=== PATIENT | female | born 1935 | race Caucasian/White ===

== ENCOUNTER 2019-04-06 13:34 | Observation (INO) | payer MEDICARE, BC ==
[2019-04-06 14:09] LABS: INR-International Normal Ratio 1.5; PTT 37.3 SEC (22.9-36.1); Prothrombin Time 17.6 SEC (12.0-14.7)
[2019-04-06] MEDS ORDERED: HYDROcodone/Acetaminophen 5/325 mg Tablet ONE (14:20)
--- NOTE | 2019-04-06 14:42 | CT ---
CT BRAIN NONCONTRAST: DATE: 04/06/2019 HISTORY: 84-year-old female status post acute head trauma from fall. Dr. Cobos reported the findings by telephone to Dr. Matta for this level 2 trauma case, at [facility] 1:55 PM on 04/06/2019 FINDINGS: There is no evidence of acute intra-axial or extra-axial hemorrhage. There is no midline shift or any other mass effect. There is no extra-axial fluid collection. There is no evidence of obstructive hydrocephalus. Calvarium is intact. There is diffuse brain parenchymal volume loss. There are low att enuation areas in the white matter. These are nonspecific, but in a patient of this age, they are probably chronic ischemic white matter changes due to microvascular atherosclerosis. There is a large left frontal scalp hematoma which across slightly to the right of midline. IMPRESSION: 1) No acute intracranial findings. 2) involutional changes and chronic ischemic white matter changes. 3) large, acute, traumatic soft tissue hematoma in the left frontal scalp.
--- NOTE | 2019-04-06 14:42 | CT ---
CT CERVICAL SPINE NONCONTRAST: DATE: 04/06/2019 HISTORY: cervical trauma, 84-year-old female status post fall. Dr. Cobos gave this report verbally, including the left pleural effusion, by telephone to Dr. Shakeel barbosa at 2:04 PM on 04/06/2019 for this level 2 trauma case. FINDINGS: There are no jumped or perched facets. There is no evidence of acute fracture. The vertebral body hei ghts are maintained. There is no prevertebral soft tissue swelling. There is a left pleural effusion that reaches the left apical pleural surface. IMPRESSION: 1. No evidence of acute fracture or acute traumatic subluxation. 2. Left pleural effusion.
--- NOTE | 2019-04-06 14:56 | RAD ---
RADIOGRAPH CHEST 1 VIEW: DATE: 04/06/2019 TIME: 2:24 PM HISTORY: 84-year-old female status post acute chest trauma from fall COMPARISON: none FINDINGS: No cardiomegaly. Retrocardiac portion of left lower lobe has increased attenuation. Rest of the visua lized lung singleton are grossly clear. Silhouetting of portions of left hemidiaphragm. Sternotomy wires. ORIF hardware fixating old left humeral neck fracture. No pneumothorax. Ectasia and tortuosity of thoracic aorta. IMPRESSION: 1. Airspace opacity at medial base of left lower lobe: Nonspecific. 2. Questionable left pleural effusion.
--- NOTE | 2019-04-06 15:23 | RAD ---
LEFT ELBOW 2 VIEWS: Date: 04/06/19 HISTORY: Injury from trauma. FINDINGS: Minimal degenerative changes and bone demineralization. No fracture, dislocation, or other acute proc ess. IMPRESSION: Bone demineralization and degenerative change without fracture or other acute process. POS: RRE
--- NOTE | 2019-04-06 15:24 | RAD ---
PELVIS 1 VIEW: Date: 04/06/19 HISTORY: Trauma. COMPARISON: None. FINDINGS: The obturator rings are intact. Moderate degenerative disease of SI joints. There is slight cortical contour irregularity along the margin of the right femoral head/neck junctio n. IMPRESSION: Focal cortical irregularity right lateral femoral head/neck junction. Dedicated right hip radiograph is recommended if clinically warranted. This may reflect impacted subcapital fracture versus ring ost eophyte. If the patient is unable to bear weight, this is more likely a fracture. POS: CET
[2019-04-06 16:43] LABS: ALT (SGPT) 27 U/L (8-55); AST (SGOT) 80 U/L (5-34); Albumin 2.4 g/dL (3.4-4.8); Alkaline Phosphatase 127 U/L (40-150); Anion Gap 12 mmol/L (10-20); BUN (Urea Nitrogen) 9 mg/dL (9.8-20.1); Bilirubin, Total 0.9 mg/dL (0.2-1.2); Calc. Creatinine Clearance 0 mL/min (70-130); Calcium 7.9 mg/dL (7.8-10.44); Carbon Dioxide 25 mmol/L (23-31); Chloride 100 mmol/L (98-107); Estimated GFR-MDRD 75; Globulin 3.9 g/dL (2.4-3.5); Glucose 104 mg/dL (83-110); Magnesium 1.3 mg/dL (1.6-2.6); Protein, Total 6.3 g/dL (6.0-8.3); Sodium 134 mmol/L (136-145)
[2019-04-06 16:44] LABS: Potassium 2.7 mmol/L (3.5-5.1)
[2019-04-06 16:49] LABS: Hemoglobin 11.2 g/dL (12.0-16.0); Mean Corpuscular HGB CONC 32.5 g/dL (32.0-36.0); Mean Corpuscular Hemoglobin 28.3 pg (27.0-31.0); Mean Corpuscular Volume 86.9 fL (78.0-98.0); RBC Distribution Width 13.3 % (11.5-14.5); Red Blood Cell (RBC) Count 3.97 mill/uL (4.20-5.40)
[2019-04-06 17:08] LABS: #Lymphocytes 2.2 thou/uL (1.20-3.40); #Monocytes 0.4 thou/uL (0.11-0.59); #Neutrophils 3.3 thou/uL (1.40-6.50); %Basophils 0.3 % (0.0-1.0); %Eosinophils 0.3 % (0.0-10.0); %Lymphocytes 37.3 % (21.0-51.0); %Monocytes 6.7 % (0.0-10.0); %Neutrophils 55.4 % (42.0-75.0); Mean Platelet Volume 8.1 fL (7.4-10.4); Platelet Count 115 thou/uL (130-400); Platelet Morphology Comment Appears Decreased
[2019-04-06] MEDS ORDERED: Magnesium 2 GM/50 ML BAG (IN WATER) ONE (18:35)
[2019-04-06] MEDS ORDERED: Potassium Chloride 20 MEQ/100 ML PREMIX BAG ONE (18:36)
[2019-04-06] MEDS ORDERED: cefTRIAXone\\ROCEPHIN 2 GM VIAL ONE (18:36)
[2019-04-06] MEDS ORDERED: Potassium Chloride 20 MEQ TAB ONE (18:36)
[2019-04-06 19:35] LABS: Lactic Acid 0.9 mmol/L (0.5-2.2)
[2019-04-06 21:31] VITALS: BMI 20.8
[2019-04-07] MEDS ORDERED: Acetaminophen 650 MG Suppository PR PRN (00:03)
[2019-04-07] MEDS ORDERED: Ondansetron ODT 4 MG TAB PO PRN (00:03)
[2019-04-07] MEDS ORDERED: Ondansetron PF 4 MG/2 ML Vial IVP PRN (00:03)
[2019-04-07] MEDS: Azithromycin 500 MG in Sodium Chloride 0.9% 250 ML 250 ML IVPB SCH (02:35)
--- NOTE | 2019-04-07 03:30 | HP ---
PRIMARY CARE PHYSICIAN: Dr. Isaías Urbina. CODE STATUS: Full code. TIME OF EVALUATION: 10:45 p.m. CHIEF COMPLAINT: Fall. HISTORY OF PRESENT ILLNESS: This is an 84-year-old female patient with past medical history of cardiac history, coronary artery disease, hypertension, CVA, came to the hospital after having a fall. The patient reported that she just tripped and fell. No clear triggers. No alleviating factors. The patient has significant lacerations and ecchymoses in the face due to the fall. Trauma workup was done that showed basically no acute fractures. The patient has no loss of consciousness. She was walking to the restroom when she fell and hit on a ceramic tiles. The patient was transported to the hospital by [facility]. Also, the patient was on Eliquis. Symptoms started suddenly, triggered by fall. No alleviating factors. REVIEW OF SYSTEMS: CONSTITUTIONAL: No fever, chills. The patient has generalized weakness. RESPIRATORY: No cough, sputum production, or shortness of breath. CARDIOVASCULAR: No chest pain or palpitation. GASTROINTESTINAL: No nausea, vomiting, diarrhea, or abdominal pain. SENIOR HR MANAGER: No dizziness, headache, or feeling lightheaded. GENITOURINARY: No burning on urination. EXTREMITIES: Bilateral leg swelling. SKIN: The patient has multiple ecchymoses in the facial area due to status post fall. All other systems were reviewed and negative except for the findings mentioned above. PAST MEDICAL HISTORY: As mentioned in the HPI. FAMILY HISTORY: Reviewed and noncontributory to the current presentation. PAST SURGICAL HISTORY: The patient has a history of valve replacement. PSYCHIATRIC HISTORY: Includes depression. SOCIAL HISTORY: No alcohol. No drugs. No smoking history. KNOWN ALLERGIES: No known drug allergies. REPORTED MEDICATIONS: 1. Pristiq. 2. Eliquis. 3. Metoprolol. 4. Cholestyramine. PHYSICAL EXAMINATION: VITAL SIGNS: On presentation, blood pressure 132/89 with heart rate 74, respiratory rate was 16, temperature 98.1, pain 8/10, oxygen saturation 95% on room air. GENERAL APPEARANCE: The patient is alert, oriented, in no acute distress. HEENT: The patient has some bilateral periorbital areas due to facial trauma. Normal conjunctivae. Moist oral mucosa. Anicteric. No JVD. RESPIRATORY: Bilateral air entry. No rales or wheezes. Symmetric expansion. CARDIOVASCULAR: Normal rate, regular rhythm. No murmurs. No gallop. No edema. ABDOMEN: Soft. Normal bowel sounds. MUSCULOSKELETAL: Baseline range of motion and strength. SKIN: Warm, intact. No pallor. No rash. No redness. Capillary refill seems to be intact. NEUROLOGIC: No evidence of any new focal weakness. Cranial nerves seems to be intact. PSYCHIATRIC: The patient is in good mood. No anxiety. Optimal judgment. DIAGNOSTIC STUDIES: EKG was reviewed. The patient has normal sinus rhythm with a rate of 71, nonspecific ST and T-wave abnormalities, prolonged QT. Radiology; head CT was negative without contrast, no intracranial finding. Cervical spine CT shows findings of left pleural effusion. Preliminary review of CT scan was done by radiologist. LABORATORY DATA: Labs were reviewed. The patient has white count 6.0, hemoglobin 11.2, MCV 86.9, platelet count 115. Coagulation; INR 1.5, PTT 37.3, PT 17.6. Sodium 134, potassium 2.7, chloride 100, carbon dioxide 25, anion gap 12, BUN 9, creatinine 0.74, GFR 75, glucose 104, lactic acid 0.9, calcium 7.9, magnesium 1.3, total bilirubin 0.9. LFTs were negative. Beta-natriuretic peptide was 216 with albumin 2.4, globulin 3.9. ASSESSMENT AND PLAN: The patient will be placed in the hospital with following medical problems: 1. Status post fall, it was a mechanical fall. The patient has a trauma. As of now, as per radiology report, no significant fractures. 2. Chronic anticoagulation. The patient's anticoagulation has been stopped due to trauma. We will hold for now. No evidence of significant hemorrhage has been seen; however, the patient has left-sided pleural effusion. We will do CT scan to assess for need for therapeutic tap and to see if there is any blood component of fluid. Last hemoglobin was 11. We will repeat hemoglobin in the morning to see if there is any drop. 3. Hyponatremia, sodium 134. The patient has been given some fluids. We will monitor sodium. This is mild, no need for any acute intervention at this point. 4. Hypokalemia. The patient has received potassium replacement. Continue to monitor and treat accordingly. 5. Hypomagnesemia is acute at 1.3. Magnesium is being replaced. We will monitor and treat accordingly. 6. Left-sided pleural effusion, unclear etiology. The patient trauma. We will do CT scan to further address this problem. 7. Deep venous thrombosis prophylaxis, apply SCDs. 8. Possible pneumonia. The patient has been started on antibiotics. We will continue for now. We will follow cultures. We will adjust antibiotics as per sensitivity. Job ID: [id number]
[2019-04-07 05:42] LABS: #Lymphocytes 2.4 thou/uL (1.20-3.40); #Monocytes 0.6 thou/uL (0.11-0.59); #Neutrophils 2.2 thou/uL (1.40-6.50); %Basophils 0.3 % (0.0-1.0); %Eosinophils 0.3 % (0.0-10.0); %Lymphocytes 46.1 % (21.0-51.0); %Neutrophils 42.3 % (42.0-75.0); Hemoglobin 10.2 g/dL (12.0-16.0); Mean Corpuscular Hemoglobin 28.9 pg (27.0-31.0); Mean Corpuscular Volume 87.5 fL (78.0-98.0); Mean Platelet Volume 8.8 fL (7.4-10.4); Platelet Count 101 thou/uL (130-400); RBC Distribution Width 13.4 % (11.5-14.5); Red Blood Cell (RBC) Count 3.54 mill/uL (4.20-5.40); White Blood Cell (WBC) Count 5.2 thou/uL (4.8-10.8)
[2019-04-07 05:55] LABS: Anion Gap 7 mmol/L (10-20); BUN (Urea Nitrogen) 9 mg/dL (9.8-20.1); Calc. Creatinine Clearance 59 mL/min (70-130); Calcium 7.1 mg/dL (7.8-10.44); Carbon Dioxide 27 mmol/L (23-31); Chloride 104 mmol/L (98-107); Estimated GFR-MDRD 86; Glucose 92 mg/dL (83-110); Potassium 3.1 mmol/L (3.5-5.1); Sodium 135 mmol/L (136-145)
--- NOTE | 2019-04-07 06:55 | CT ---
CT THORAX WITHOUT IV CONTRAST: INDICATIONS: History of fall with diminished breath sounds on the left. COMPARISON: None. FINDINGS: There is a moderate left and a small right pleural effusion with bibasilar atelectasis. No contusion or pneumothorax is evident. There is post surgical change of a midline sternotomy. There is mild a neurysmal dilatation of the ascending aorta to 4.6 cm. There is aneurysmal dilatation of the aortic arch at 3.7 cm. The descending thoracic aorta measures 2.6 cm. There is a hypodensity involving the right hepatic lobe, suspicious for a cyst, measuring 1.8 cm. There is diffuse fatty infiltration of the liver. There are healed rib deformities involving the posterior 12th, 11th, and 10th ribs. No acute osseous abnormality is evident. There is multilevel spondylosis of the thoracic spine. IMPRESSION: 1. No definite acute traumatic injury seen involving the chest, within the limitations of this nonco ntrast CT evaluation. 2. Aneurysmal dilatation of the ascending aorta and the aortic arch. 3. Moderate left and small right pleural effusions with bibasilar atelectasis. 4. Hypodensity within the right hepatic lobe, most consistent with a right hepatic lobe cyst. 5. Fatty liver. POS: BH
--- NOTE | 2019-04-07 09:21 | PDOC.HOSPP ---
- Subjective Subjective: alert, appropriate no co - Objective Vital Signs & Weight: Vital Signs (12 hours) Temp Pulse Resp BP Pulse Ox 04/07/19 07:33 97.9 F 81 16 158/91 H 93 L 04/07/19 04:00 97.9 F 81 19 146/87 H 100 04/07/19 00:00 97.7 F 75 18 151/90 H 96 04/06/19 21:25 96.3 F L 72 18 178/102 H 95 Weight Weight 125 lb 6.4 oz I&O: 04/06/19 04/07/19 04/08/19 06:59 06:59 06:59 Intake Total 350 Output Total 200 Balance 150 Result Diagrams: 04/07/19 04:56 04/07/19 04:56 ROS - Review of Systems All systems: All other ROS were reviewed and found negative. - Medication Medications: Active Medications Generic Name Dose Route Start Last Admin Trade Name Freq PRN Reason Stop Dose Admin Azithromycin 500 mg/ Sodium 250 mls @ 250 mls/hr 04/07/19 02:00 04/07/19 02: 35 Chloride IVPB 250 mls Q24HR JUAN LUIS Administration - Exam NAD Eye: PERRL Neck: no JVD Heart: RRR, no murmur Respiratory: CTAB, no wheezes, no rales Gastrointestinal: soft, non-tender, normal bowel sounds Extremities: no edema Neurological: CN's grossly intact, no focal deficits Hosp A/P (1) Syncope Code(s): R55 - SYNCOPE AND COLLAPSE Status: Acute (2) Hematoma Code(s): T14.8XXA - OTHER INJURY OF UNSPECIFIED BODY REGION, INITIAL ENCOUNTER Status: Acute Plan: hematoma scalp, bilat periorbital bruising (3) Anticoagulated Code(s): Z79.01 - HALF-WAY (CURRENT) USE OF ANTICOAGULANTS Status: Acute (4) History of prosthetic heart valve Status: Acute (5) Pleural effusion Code(s): J90 - PLEURAL EFFUSION, NOT ELSEWHERE CLASSIFIED Status: Acute - Plan plan discussed w/ family hold eliquis. echo cardiagram, close observation
[2019-04-07] MEDS: Acetaminophen 325 MG TAB PO PRN ×2 (09:30→15:30)
[2019-04-07] MEDS: Venlafaxine HCl XR 150 MG CAP PO SCH (09:30)
[2019-04-07] MEDS: Metoprolol Tartrate 25 MG TAB PO SCH ×2 (09:30→22:05)
[2019-04-07] MEDS ORDERED: cefTRIAXone\\ROCEPHIN 1 GM in Sodium Chloride 0.9% 100 ML IVPB SCH (18:00)
[2019-04-08] MEDS: Azithromycin 500 MG in Sodium Chloride 0.9% 250 ML 250 ML IVPB SCH (01:33)
[2019-04-08] MEDS: Metoprolol Tartrate 25 MG TAB PO SCH (08:14)
[2019-04-08] MEDS: Venlafaxine HCl XR 150 MG CAP PO SCH (08:14)
[2019-04-08 11:52] VITALS: BP 156/87; TEMP 97.8
--- NOTE | 2019-04-08 12:52 | DIS ---
DATE OF ADMISSION: 04/06/2019 DATE OF DISCHARGE: 04/08/2019 PRIMARY CARE PHYSICIAN: Isaías Urbina MD, in [place]. FINAL DIAGNOSES: Hematoma of scalp, fall, coronary artery disease, asymptomatic , long-term use of anticoagulants, bioprosthetic mitral valve, small left pleural effusion, and hypokalemia. DISCHARGE MEDICATIONS: Her Eliquis has been held. She has been told to take aspirin 325 mg p.o. daily until seen by her PCP, metoprolol 25 mg p.o. b.i.d., Pristiq 100 mg p.o. daily, K-Dur 20 mEq once a day. ALLERGIES: SULFA. DIET: Heart healthy. CODE STATUS: Full. PENDING AT TIME OF DISCHARGE: Nothing. HOSPITAL COURSE: The patient admitted to the [facility] through [facility]. The patient had a fall, hit her forehead, and had a scalp hematoma. She was on Eliquis, which was stopped. She had a questionable density on chest x-ray, which is a small pleural effusion for which she was started on antibiotics. On admission, she had a potassium of 2.7. She was given potassium and it came up to 3.1. She had some other minor abnormalities. Magnesium 1.3, which she was given magnesium for. Liver functions were normal except for an AST of 80. Her CBC showed a hemoglobin of 11.2 and platelet count 115,000. INR was 1.5. She has been observed in the hospital. Vital signs are stable. Cardiorespiratory exam is normal. Neurological exam is normal. She is desirous of going home. She is being discharged for followup with Dr. Isaías Urbina. She has been requested to see him within a week, to stay off the Eliquis and take aspirin 325 mg a day until she sees him. No consultations or procedures. Job ID: [id number] MTDD
== END 2019-04-08 14:11 | disposition home or self-care (01) ==
LOC: ERS 13:34 → 2SW 17:40 → 2NO 21:15
PROVIDERS: ADMIT Internal Medicine; ATTEND Internal Medicine
DX: S00.03XA Contusion of scalp, initial encounter (principal); I25.10 Atherosclerotic heart disease of native coronary artery without angina pectoris; J90 Pleural effusion, not elsewhere classified; E87.6 Hypokalemia; I10 Essential (primary) hypertension; E87.1 Hypo-osmolality and hyponatremia; E83.42 Hypomagnesemia; F32.9 Major depressive disorder, single episode, unspecified; Z95.2 Presence of prosthetic heart valve; Z86.73 Personal history of transient ischemic attack (TIA), and cerebral infarction without residual deficits; Z88.2 Allergy status to sulfonamides; Z79.01 Long term (current) use of anticoagulants; Z79.899 Other long term (current) drug therapy; W01.198A Fall on same level from slipping, tripping and stumbling with subsequent striking against other object, initial encounter
CPT/HCPCS: 70450; 71045; 71250; 72125; 72170; 73070; 80048; 80053; 82550; 83605; 83735; 83880; 84145; 84484; 85025 ×2; 85610; 85730; 93005; 93306; 96365; 96367; 96368; 96375; 96376 ×2; 97139; 99285; G0378 ×4; 36415; G0390; J0456; J0696; J3475; J3480; J3490; J7050

== ENCOUNTER 2020-08-25 13:06 | Inpatient (IN) | payer BC, MEDICARE ==
[~2020-08-25 13:06] MED LIST: Iopamidol-370 76% 500 ML 1 ML ONE
[2020-08-25] MEDS ORDERED: Ketamine 50 MG/ML (10ML VIAL) ONE (13:11)
[2020-08-25 13:27] LABS: Hemoglobin 9.3 g/dL (12.0-16.0); Mean Corpuscular HGB CONC 29.2 g/dL (32.0-36.0); Mean Corpuscular Hemoglobin 27.1 pg (27.0-31.0); Mean Platelet Volume 9.7 fL (7.4-10.4); Platelet Count 103 thou/uL (130-400); RBC Distribution Width 15.1 % (11.5-14.5); Red Blood Cell (RBC) Count 3.42 mill/uL (4.20-5.40); White Blood Cell (WBC) Count 13.5 thou/uL (4.8-10.8)
[2020-08-25] MEDS ORDERED: fentaNYL Citrate/PF 2,000 MCG in Sodium Chloride 0.9% 60 ML IV SCH (13:30)
[2020-08-25 13:32] LABS: INR-International Normal Ratio 3.9; Prothrombin Time 38.8 sec (12.0-14.7)
[2020-08-25 13:33] LABS: PTT 90.8 sec (22.9-36.1)
[2020-08-25 13:34] LABS: Actual Bicarbonate (HCO3a) 2.4 mEq/L (22-28); Analyzer IN Cardio ER; Calcium, Ionized (arterial) 1.16 mmol/L (1.12-1.30); Carboxyhemoglobin (COHb) 0.3 gm% (0.0-3.0); Hemoglobin (Hb) 9.5 g/dL (12.0-16.0); Potassium - ABG Lab 4.81 mmol/L (3.70-5.30)
[2020-08-25] MEDS ORDERED: Sodium Bicarbonate 2.5 MEQ/5 ML VIAL ONE (13:41)
[2020-08-25] MEDS ORDERED: Sodium Bicarb 50 MEQ/50 ML Abboject 8.4% SYRINGE ONE ×3 (13:41→19:03)
--- NOTE | 2020-08-25 13:41 | RAD ---
SINGLE VIEW OF THE CHEST: 08/25/20 COMPARISON: 06/16/20 HISTORY: Shortness of breath. Status post intubation and CPR. FINDINGS: Single view of the chest shows a normal sized cardiomediastinal silhouette. The patient is status pos t sternotomy. There is an endotracheal tube with its tip in good position above the rosa isela and along the inferior border of the clavicles. There is a small left pleural effusion. Haziness is seen in the left thorax which may represent a layering additional component of the pleural effusion. Left apical pleural thickening is seen. No obvious pneumothorax is visualized. Degenerative changes are seen in the spine. Hardware is seen in the left humerus. IMPRESSION: 1. Appropriate position of endotracheal tube. 2. Left pleural effusion. POS: EAA
[2020-08-25 13:48] LABS: Acetaminophen Less than 6.0 mcg/mL (10.0-30.0); Alcohol Less than 10 mg/dL (Less than 10); CK (CPK) 289 U/L (29-168); Salicylate Less than 8.0 mg/dL (15.0-30.0)
[2020-08-25 13:49] LABS: ALT (SGPT) 58 U/L (8-55); AST (SGOT) 137 U/L (5-34); Albumin 2.7 g/dL (3.4-4.8); Alkaline Phosphatase 94 U/L (40-110); Anisocytosis SLIGHT = 6-15 cells (100X) (0-5/hpf); BUN (Urea Nitrogen) 51 mg/dL (9.8-20.1); Band 8 % (5-11); Bilirubin, Total 1.8 mg/dL (0.2-1.2); Calc. Creatinine Clearance 0 mL/min (70-130); Calcium 8.4 mg/dL (7.8-10.44); Chloride 95 mmol/L (98-107); Globulin 4.7 g/dL (2.4-3.5); Glucose 314 mg/dL (83-110); Lymphocytes 30 % (21-51); MDiff Complete? YES; Metamyelocyte 1 % (0-0); Monocytes 14 % (0-10); Myelocyte 1 % (0-0); Neutrophil 45 % (42-75); Nucleated RBC 1 % (0); Ovalocytes SLIGHT = 2-5 cells (100X) (0-1/hpf); Platelet Morphology Comment Appears Decreased; Polychromasia SLIGHT = 2-3 cells (100X) (0-2/hpf); Potassium 5.5 mmol/L (3.5-5.1); Protein, Total 7.4 g/dL (6.0-8.3); Reactive Lymphocytes 1 % (0-10); Sodium 131 mmol/L (136-145)
[2020-08-25] MEDS ORDERED: Sodium Bicarb 50 MEQ/50 ML VIAL ONE (13:49)
[2020-08-25 14:01] LABS: Carbon Dioxide Less than 8 mmol/L (23-31)
[2020-08-25] MEDS ORDERED: Cefepime 2 GM VIAL ONE (14:08)
--- NOTE | 2020-08-25 14:08 | CT ---
CTA Angio Chest W WO Con 08/25/2020 1:53 PM Indication: History of dyspnea Technique: Multiple CTA images were obtained of the thorax with IV contrast. 3-D rendering: MIP jose nstructed images were created and reviewed. Comparison: Prior CT of the thorax without contrast dated April 07, 2019 Findings: Pulmonary arteries: No central or segmental pulmonary embolus is evident. Heart and Aorta: There is stable aneurysmal dilatation of the ascending aorta measuring 5 cm. There are coronary artery and thoracic aortic calcifications. Mediastinum:There is postsurgical change of a prior CABG. The patient is intubated. Lungs:There is subsegmental volume loss within the left lower lobe. There is mild subsegmental volume loss within the right lower lobe. Pleural space: There is a moderate to prominent left and small right pleural effusions Upper Abdomen: No acute abnormality. Osseous Structures: There is a stable wedge compression fracture L1 when compared to a 2 view chest radiograph dated 04/17/2019 Soft tissues:No abnormality. Other findings:None. Impression: 1. No central or segmental pulmonary embolus. 2. Stable aneurysmal dilatation of the ascending aorta 3. Moderate to prominent left and small right pleural effusions
[2020-08-25 14:10] LABS: CKMB 5.3 ng/mL (0-6.6)
[2020-08-25 14:14] LABS: Base Excess (BEa) -31.3 mEq/L (-2.0 to +3.0); CO2 Tension 17.9 mmHg (35.0-45.0); Puncture Site LBA; pH, Arterial 6.75 (7.35-7.45)
[2020-08-25 14:15] LABS: ALV-art Gradient 343.625 mmHg (0-20)
[2020-08-25 14:25] LABS: Bilirubin Negative (Negative); Blood, Urine 3+ (Negative); Clarity Turbid (Clear); Glucose, Urine (Dipstick) Normal (Negative); Ketone, Urine Negative (Negative); Leukocyte Negative Leu/uL (Negative); Nitrite Negative (Negative); Protein, Urine (Dipstick) 50 mg/dL (Neg-Trace); Specific Gravity, Urine 1.014 (1.002-1.036); Squamous Epithelial 0-3 HPF (0-3); WBC/HPF None Seen HPF (0-3)
[2020-08-25] MEDS ORDERED: Vancomycin 1 GM/200 ML BAG ONE (14:30)
[2020-08-25 14:31] LABS: Amphetamine Not Detected (NotDetected); Barbiturates Screen Not Detected (NotDetected); Benzodiazepine Screen Not Detected (NotDetected); Cocaine Metabolite Screen Not Detected (NotDetected); Medtox Control Line Valid? VALID (VALID); Medtox Reader # READER 4; Methadone Not Detected (NotDetected); Methamphetamine Not Detected (NotDetected); Opiate Screen Not Detected (NotDetected); Oxycodone Screen Not Detected (NotDetected); Phencyclidine (PCP) Not Detected (NotDetected); THC/Cannabinoid Screen Not Detected (NotDetected); Tricyclic Screen Not Detected (NotDetected)
[2020-08-25 14:34] LABS: Bacteria/HPF None Seen HPF (None Seen)
--- NOTE | 2020-08-25 14:46 | CT ---
CT BRAIN WITHOUT CONTRAST: HISTORY: Syncope. COMPARISON: Comparison is made with the exam of 04/06/2019. FINDINGS: Changes of cortical atrophy and chronic small-vessel ischemic disease are again seen. The ventricula r size is stable and the basilar cisterns patent. No evidence of acute infarct, hemorrhage, midline shift, or abnormal extraaxial fluid collections are seen. The bony calvarium is intact. There is a small polyp vs mucous retention cyst in the left maxillary sinus. IMPRESSION: No CT evidence of acute intracranial process. POS: AH
[2020-08-25 14:51] LABS: SARS-CoV-2 NAA Rapid Test Not Detected (NotDetected)
[2020-08-25 15:59] LABS: Actual Bicarbonate (HCO3a) 7.2 mEq/L (22-28); Analyzer IN Cardio ER; Base Excess (BEa) -22.7 mEq/L (-2.0 to +3.0); CO2 Tension 30.3 mmHg (35.0-45.0); Calcium, Ionized (arterial) 1.05 mmol/L (1.12-1.30); Carboxyhemoglobin (COHb) 0.3 gm% (0.0-3.0); Hemoglobin (Hb) 9.4 g/dL (12.0-16.0); O2 Tension (PaO2), arterial 49.9 mmHg (> 60.0); Potassium - ABG Lab 5.21 mmol/L (3.70-5.30)
[2020-08-25] MEDS ORDERED: Guaifenesin DM 100-10/5 ML UDCUP PO PRN (15:59)
[2020-08-25] MEDS ORDERED: Acetaminophen 650 MG Suppository PR PRN (15:59)
[2020-08-25] MEDS ORDERED: Acetaminophen 325 MG TAB PO PRN (15:59)
[2020-08-25] MEDS ORDERED: Ondansetron ODT 4 MG TAB PO PRN (15:59)
[2020-08-25] MEDS ORDERED: Senokot S 8.6-50 MG TAB PO PRN (15:59)
[2020-08-25] MEDS ORDERED: Ondansetron PF 4 MG/2 ML Vial IVP PRN (15:59)
[2020-08-25 16:00] LABS: ALV-art Gradient 268.725 mmHg (0-20); Puncture Site RRA
[2020-08-25] MEDS: Sodium Bicarbonate 140 MEQ in Dextrose 5% in Water 1,000 ML IV SCH (16:45)
[2020-08-25 16:59] LABS: Troponin I 0.176 ng/mL (< 0.028)
--- NOTE | 2020-08-25 17:53 | CON ---
DATE OF CONSULTATION: 08/25/2020 This is 45 minutes of critical care time CONSULTING PHYSICIAN: Tony Chacon MD REASON FOR CONSULTATION: The patient coded at home and is now on mechanical ventilation. HISTORY OF PRESENT ILLNESS: This is an 85-year-old female. She has a history of some heart problems. History I have is obtained from the daughter and by reading some old records that we have in the chart. My understanding is that the patient is in quite poor shape at home. She has severe cardiac issues, which sound like systolic heart failure. She has developed recurrent pleural effusions over the last several months. She is also extremely debilitated from a stroke that she had a couple of years ago. Today, she became acutely short of breath at home. Her daughter called 911. Paramedics arrived very quickly. The patient did receive chest compressions. She was given some epinephrine and bicarbonate and apparently responded. I believe she was intubated in the field, but I am not completely sure of that. Here at the hospital, she has been hypotensive and hypothermic. She was given a dose of ketamine at some point, but has not been paralyzed or given any sedation since. PAST MEDICAL HISTORY: 1. Stroke. 2. Coronary artery disease. 3. Congestive heart failure. 4. Hypertension. PAST SURGICAL HISTORY: She has had what sounds to be aortic valve replacement. SOCIAL HISTORY: Nonsmoker. Does not consume alcohol. Lives at home with her daughter. MEDICATIONS: Prior to admission are not known at this time. REVIEW OF SYSTEMS: Cannot be obtained because the patient is obtunded. PHYSICAL EXAMINATION: VITAL SIGNS: Her temperature is around 90 degrees Fahrenheit, pulse in the 60s, blood pressure 90/50. GENERAL: She is a disheveled female, who appears older than her stated age of 85, and appears to be in very poor shape. HEENT: Pupils sluggishly reactive, 3 mm to 2 mm. Oropharynx is intubated. NECK: No adenopathy or JVD. LUNGS: Coarse rhonchi. CARDIOVASCULAR: S1 and S2. Regular with 2/6 systolic murmur. ABDOMEN: Soft. No hepatosplenomegaly. EXTREMITIES: She has excoriations over her frye. She has had stage I sacral decubitus ulcer. LABORATORY DATA: Sodium 131, potassium 5.5, chloride 95, CO2 less than 8, BUN 51, creatinine 2.2, and glucose 314. Lactate is greater than 13. AST 137, ALT 58. BNP 3617. White blood cell count 13.5, hematocrit 31.8, and platelet count 103. INR 3.9. PH of 7.0, pCO2 of 30, pO2 of 49 on SIMV rate 20, tidal volume 430, PEEP 5, pressure support 10, and FiO2 of 50%. Tox screen was negative. COVID test negative. Urinalysis shows some proteinuria, some red blood cells. X-ray shows cardiomegaly with bilateral effusions, left greater than right. CT angio showed no evidence of clot. ASSESSMENT: 1. Status post cardiopulmonary arrest. 2. Suspect this is acute on chronic systolic heart failure rather than sepsis based on laboratory parameters on the patient presentation. 3. Severe debilitation. 4. Acute renal failure. PLAN: In my opinion, the patient is manifesting end-stage congestive heart failure. I do not think that she is going to recover well from this. If she does get better, I doubt it would be lasting. I spoke with the daughter, who is the caregiver. I asked her what the patient's wishes were and she said the patient would not want to be on machines. I told the daughter that the patient is now on machines and ask her how she wanted to proceed. She is going to talk with her siblings. She did ask me to put a DNR order on the chart. I am going to place the patient on a bicarbonate drip and keep her on mechanical ventilation for the time being. She has been given empiric antibiotics. I would not be much more aggressive than that at this time. Job ID: [id number]
[2020-08-25 18:08] LABS: BUN (Urea Nitrogen) 49 mg/dL (9.8-20.1); Calc. Creatinine Clearance 0 mL/min (70-130); Calcium 7.7 mg/dL (7.8-10.44); Chloride 94 mmol/L (98-107); Glucose 313 mg/dL (83-110); Potassium 5.3 mmol/L (3.5-5.1); Sodium 129 mmol/L (136-145)
[2020-08-25 18:13] LABS: Carbon Dioxide Less than 8 mmol/L (23-31)
[2020-08-25 18:28] LABS: Lactic Acid Greater than 13.4 mmol/L (0.5-2.2)
[2020-08-25] MEDS ORDERED: Sodium Bicarbonate 150 MEQ in Dextrose 5% in Water 1,000 ML IV SCH (19:15)
[2020-08-25 20:15] LABS: Troponin I 0.275 ng/mL (< 0.028)
[2020-08-25] MEDS ORDERED: Norepinephrine 4 MG/4 ML VIAL ONE (20:49)
[2020-08-25] MEDS ORDERED: Famotidine/PF 20 mg/2ml Vial SLOW IVP SCH (21:00)
--- NOTE | 2020-08-25 23:31 | CON ---
DATE OF CONSULTATION: 08/25/2020 CONSULTING PHYSICIAN: Dr. Chacon. REASON FOR CONSULTATION: Acute kidney injury, acidosis, hyperkalemia. REASON FOR ADMISSION: At home cardiac arrest. HISTORY OF PRESENT ILLNESS: This is an 85-year-old white female with history of CVA and coronary artery disease, congestive heart failure, came to the hospital with cardiac arrest. The patient was at home, started having shortness of breath and 911 was called and apparently was intubated. Also, she is currently intubated. Daughter was at the bedside. Per her report, she has been evaluated very Cardiology lately without any specific etiology and she has been having recurrent pleural effusion which has been taped also. No fever or chills. PAST MEDICAL HISTORY: Positive for CVA, coronary artery disease, congestive heart failure, hypertension. PAST SURGICAL HISTORY: Aortic valve replacement. HOME MEDICATIONS: Reviewed. ALLERGIES: SULFA. SOCIAL HISTORY: No smoking, alcohol, or illicit drugs. FAMILY HISTORY: No history of kidney disease. REVIEW OF SYSTEMS: Could not be obtained as the patient is intubated. PHYSICAL EXAMINATION: GENERAL: This is an elderly female, intubated. VITAL SIGNS: Reviewed. HEENT: Atraumatic, normocephalic. Intubated. CVS: S1-S2 heard. RESPIRATORY: Clear. GASTROINTESTINAL: Abdomen is soft. MUSCULOSKELETAL: No edema. DERMATOLOGIC: Have chronic bruises. NEUROLOGIC: Intubated. LABORATORY DATA: Hemoglobin 9.3, potassium 5.3. Sodium 129, bicarb less than 8, BUN 49, creatinine is 1.99. ASSESSMENT AND PLAN: 1. 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 2. Hyponatremia. 3. Hyperkalemia. 4. Severe acidosis and lactic acidosis. 5. Hypocalcemia. 6. Acute hypoxic respiratory failure. 7. Cardiac arrest and cardiorenal syndrome. 8. History of cardiac failure. 9. History of congestive heart failure. 10. Elevated BNP. Overall prognosis is very poor. Agree with bicarb drip and monitor renal function. We will follow the case along with you. I did explain the poor prognosis to the daughter and she has made her DNI today and waiting for opinion from other siblings. We will follow. Job ID: [id number]
[2020-08-26] MEDS ORDERED: Famotidine/PF 20 mg/2ml Vial ONE (00:25)
--- NOTE | 2020-08-26 05:44 | HP ---
PRIMARY CARE PHYSICIAN: Dr. Isaías Urbina in [place]. CHIEF COMPLAINT: Cardiac arrest. HISTORY OF PRESENT ILLNESS: This is an 85-year-old white female with a known diagnosis of hypertension, coronary artery disease, artificial bioprosthetic mitral valve replacement and CVA and recurrent left-sided pleural effusions over the last year. History comes from patient's daughter as the patient is currently intubated. Per the patient's daughter, the patient has been having some decline in her strength in the last few weeks. Previously, she had this multiple times in the last year. Her primary care physician had done thoracentesis recurrently with removal of fluid and then she would feel a lot better. He eventually referred her to a single needle tufting machine operator, has been doing a cardiac workup, but has not yet been able to determine the cause of her pleural effusions and recurrent chest pressure and shortness of breath. The patient was supposed to get a CT looking for blood clots earlier in the week; however, her kidneys did not look good enough to do that at that time. She has been being treated with some diuretics. She had previously been on blood thinners until about a year and a half ago for a previous stroke, but now is just on baby aspirin. The patient had increased shortness of breath this morning, was very weak. Her daughter got her up and moved her around with a wheelchair. However, the patient was too tired and so she asked her to bring her back to bed. The daughter put her in bed, came back a few minutes later, and the patient was really struggling to breathe and starting to turn blue. The daughter called EMS. By the time EMS got there, the patient was having CPR done by the family. They did ACLS on her and did get return of spontaneous circulation. She did have a low blood glucose in the 30s on arrival. This resolved with an amp of D50. The patient was given some ketamine at the house when they did the intubation. She was significantly over breathing the vent when she arrived in the emergency room here and her vital signs were stable with a mildly bradycardic heart rate and stable blood pressure. She did receive fluids by EMS and in the emergency room, she was found to be severely acidotic with a pH of 6.75. She got a bicarbonate amps and then had a bicarbonate drip started and her pH is now up to 7, and she is to be started on a fentanyl drip. The patient did have elevated creatinine in the emergency room, however, given her critical illness, the patient did have a CT scan done in the emergency room, which showed no evidence of pulmonary emboli, just a moderate left-sided pleural effusion. The patient also was noted to have an elevated INR above 3 in spite of not being on any Eliquis for the last year and a half. The patient's daughter denies any recent cough or fever or other infectious symptoms. She thinks she may have scraped her shins on the bed at some point in the last couple of days because she does have some peeling skin tears. REVIEW OF SYSTEMS: Unable to obtain secondary to the patient's mental status. PAST MEDICAL HISTORY: 1. Coronary artery disease. 2. Hypertension. 3. Previous stroke. 4. Chronic renal failure. PAST SURGICAL HISTORY: Mitral valve replacement. SOCIAL HISTORY: No tobacco, alcohol, or illicit drug use. FAMILY HISTORY: No significant family medical history. ALLERGIES: NO KNOWN DRUG ALLERGIES. CURRENT MEDICATIONS: 1. Baby aspirin daily. 2. Metoprolol, unknown dose. 3. Unknown diuretic. PHYSICAL EXAMINATION: VITAL SIGNS: Blood pressure 120/80, pulse 55, respirations 28 on the vent; temperature 89.6, currently with Lokesh Hugger on; O2 saturation 100% on the ventilator. GENERAL: This is a thin elderly white female, who is overbreathing via ventilator, but is otherwise unresponsive to stimulation as a lot of bruising on her face and then some skin tears on her anterior shins. HEENT: Pupils are mildly dilated and reactive to light bilaterally. ENT, ET tube in place. NECK: Without any deformity or bruising or other abnormalities noted. Her trachea is midline. HEART: Mildly bradycardic. Regular rhythm with no murmurs, rubs, or gallops. She does have palpable peripheral pulses and about 2 to 3 second cap refill in her extremities. LUNGS: Clear to auscultation bilaterally on the ventilator. ABDOMEN: Soft without any masses. No external trauma noted. She does have positive bowel sounds. EXTREMITIES: The patient has intact pulses and distal cap refill in all extremities. Her toes do look a little bit dusky. SKIN: The patient has skin tears on bilateral shins with mild amount of oozing. NEUROLOGIC: The patient is currently unresponsive to pain or stimulation. LABORATORY DATA: White blood cell count 13,000 with a mildly elevated monocytes, hemoglobin of 9.3, hematocrit 31.8. Normal MCV. Platelet count mildly low at 103. Coagulation profile notable for a PT of 38, an INR 3.9, and a PTT of 90. Original blood gas showed a pH of 6.75 with a pCO2 of 17, pO2 of 300. Repeat ABG shows a pH of 7.0, pCO2 of 30, and pO2 of 49, suspicious that this may actually be a venous sample as she has a normal O2 saturation on the monitor right now. Complete metabolic panel is notable for a sodium of 131, potassium 5.5, chloride 95, carbon dioxide less than 8, anion gap atv-ipydckyk-cd-count, BUN of 51, creatinine of 2.22 which was normal. Last time we had her in here a year ago; glucose of 314 after the amp of D50. Total bilirubin of 1.8, AST of 137, ALT of 58, albumin of 2.7. The rest was normal. Creatine kinase is 289, CK-MB was 5.3, troponin was indeterminate at 0.093; brain natriuretic peptide was 3600, was 200 a year ago. Lactic acid was greater than 13. Urinalysis was negative for evidence of infection. Tox screen was negative and the influenza A and B and COVID were all negative. IMAGING STUDIES: Chest x-ray, I did review the chest x-ray done in the emergency room along with the radiologist's report. Chest x-ray does show ET tube in place, shows some pleural effusion on the left side. CTA of the chest shows no central or segmental pulmonary embolism. 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 CT of the brain without contrast showing no acute abnormalities. EKG done in the emergency room did show sinus bradycardia with no ST or T-wave changes. ASSESSMENT: 1. Acute cardiac arrest, status post return of spontaneous circulation, uncertain etiology at this point. The patient does not appear to have had a massive heart attack or blood clots. It is possible that she might have had a primary acidosis problem causing her increased difficulty breathing this morning or that she had a respiratory arrest that led to a cardiac arrest and the acidosis is now purely secondary to her preceding cardiac arrest. Most likely eitiology is progression of congestive heart failure. The patient currently has stable vital signs without any sort of pressors needed though I don't suspect that to continue. We will continue post arrest hypothermia. The patient will need to be warmed up some thoug. We will continue the patient on the vent and we will consult Dr. Khan for Critical Care. 2. Acute respiratory failure, likely contributed by the large pleural effusion. The patient was reportedly on home oxygen for the last year as well, about 3 L per the daughter, uncertain the reasoning behind this. Except for the pleural effusion, she does not have any known lung disease per the daughter. 3. Acute renal failure with severe acidosis. We will consult Dr. Kraus. We will continue bicarb drip for now and we will recheck lab in the morning. 4. Recurrent pleural effusions, possibly cardiac in origin. Per the patient report, the specific cardiac etiology was not able to be determined by her single needle tufting machine operator as an outpatient as of yet, we will go ahead and get an echocardiogram should the patient survive until tomorrow and consider cardiac consultation at that time if needed. 5. Coagulopathy of uncertain etiology. The patient is reportedly only on baby aspirin. We will monitor the INR. No evidence of sepsis causing DIC or anything of that sort at this point. As possible, the patient was getting some liver disease from chronic congestion from fluid back up, though she never had any ascites or lower extremity edema by daughter's report. This might be the source of her coagulopathy. 6. Elevated liver function tests, possibly from hepatic congestion and shock liver after the cardiac arrest, we will monitor. 7. Code status. I did discuss this with the patient's daughter. She stated that for now the patient is full code, but the patient would not want to be on long- term life support.I discussed re-evaluating in next day or two to see if the patient looks like she might recover. If not, the daughter would be open to moving toward withdrawal of care. Daughter would also be open to considering change to DNR should she start having recurrent arrest episodes that require further coding. At this point, the patient is still full code. I will have Palliative Care consulted to assist family with thinking through the future care for this patient. Addendum: After discussion with Dr. Khan about patient's grave prognosis and considering what the patient had told her family about not wanting to be on machines in the past, the daughter decided to make the patient DNAR. They will consider withdraw of care in the morning if patient should survive that long. Job ID: [id number] MALACHI
[2020-08-26] MEDS ORDERED: Norepinephrine 4 MG/4 ML VIAL ONE (07:16)
[2020-08-26] MEDS ORDERED: EPINEPHrine 1 MG/10 ML Abboject SYRINGE ONE (07:28)
--- NOTE | 2020-08-26 08:06 | RAD ---
RADIOGRAPH CHEST 1 VIEW: DATE: 08/26/2020 TIME: 5:58 AM HISTORY: 85-year-old female with "pneumonia" COMPARISON: 08/25/2020 FINDINGS: Endotracheal tube distal tip remains at mid thoracic trachea. There is a new esophageal tube with distal tip at EG junction, and side port at distal esophagus. Interval increase in volume of left pleural effusion. Underlying left lower lobe consolidation again noted. Mild haziness of right medial base and left midlung zone. Nonspecific, but could represent mild pulmo nary interstitial edema. No cardiomegaly or pneumothorax. Sternotomy wires. IMPRESSION: 1) esophagogastric tube distal tip is at the esophagogastric junction, and should be advanced. 2) left pleural effusion appears larger now. 3) underlying severe atelectasis of left lower lobe.
--- NOTE | 2020-08-26 08:34 | PDOC.HOSPP ---
- Subjective Encounter Date: 08/26/20 Encounter Time: 09:00 Subjective: Patient without changes overnight. Daughter at bedside and asking to withdraw care this AM due to patient didn't want to be on machines. - Objective Result Diagrams: 08/26/20 08:10 08/26/20 08:10 Hospitalist ROS - Review of Systems ROS unobtainable: due to endotracheal tube - Medication Medications: Active Medications Generic Name Dose Route Start Last Admin Trade Name Freq PRN Reason Stop Dose Admin Famotidine 20 mg 08/25/20 21:00 08/26/20 00:24 Famotidine/Pf 20 Mg/2ml Vial SLOW IVP 20 mg Q12HR JUAN LUIS Administration Sodium Bicarbonate 140 meq/ 1,140 mls @ 75 mls/hr 08/25/20 16:45 08/25/20 16:45 Dextrose/Water IV 1,140 mls .[id number] JUAN LUIS Administration - Exam General - other findings: responds to painful stimuli Heart: RRR, murmur present, III/IV Respiratory: normal chest expansion, no tachypnea Gastrointestinal: soft, normal bowel sounds Psychiatric - other findings: not able to awake and follow commands but does move some to stimulation Hosp A/P (1) Cardiac arrest with successful resuscitation Code(s): I46.9 - CARDIAC ARREST, CAUSE UNSPECIFIED Status: Acute (2) Congestive heart failure Code(s): I50.9 - HEART FAILURE, UNSPECIFIED Status: Acute (3) Acute and chronic respiratory failure with hypoxia Code(s): J96.21 - ACUTE AND CHRONIC RESPIRATORY FAILURE WITH HYPOXIA Status: Acute (4) Metabolic acidosis Code(s): E87.2 - ACIDOSIS Status: Acute (5) History of prosthetic heart valve Status: Chronic (6) Pleural effusion Code(s): J90 - PLEURAL EFFUSION, NOT ELSEWHERE CLASSIFIED Status: Chronic (7) Coagulopathy Status: Acute Plan: not on anticoagulation at home - Plan Patient currently on the vent and requiring levophed. Antibiotics being given. Acidosis improving with bicarb drip. ECHO was planned today to assess ventricular function. AM lab pending. Patient critically ill and not likely to survive. Discussed prognosis with the daughter and she states that she has talked with all other family members and that her mother never wanted to be on a ventilator. Wants to withdraw care and keep comfortable. Will contact respiratory therapy for terminal exubation. I did discuss the patient with Dr. Khan and he is in agreement with the plan. Can consider inpatient hospice if the patient doesn't pass quickly though I suspect it will be quickly. Morphine and Ativan written for for air hunger and agitation.
[2020-08-26] MEDS ORDERED: Lorazepam 2 MG/ML VIAL SLOW IVP PRN (09:15)
[2020-08-26] MEDS ORDERED: Morphine 4 MG/ML VIAL ONE (09:17)
[2020-08-26] MEDS ORDERED: Morphine 4 MG/ML VIAL SLOW IVP PRN (09:19)
[2020-08-26] MEDS: Sodium Bicarbonate 140 MEQ in Dextrose 5% in Water 1,000 ML IV SCH (09:33)
[2020-08-26 09:46] LABS: Hemoglobin 12.5 g/dL (12.0-16.0); Mean Corpuscular HGB CONC 31.2 g/dL (32.0-36.0); Mean Corpuscular Hemoglobin 27.6 pg (27.0-31.0); Mean Corpuscular Volume 88.7 fL (78.0-98.0); Mean Platelet Volume 11.3 fL (7.4-10.4); Platelet Count 82 thou/uL (130-400); RBC Distribution Width 15.4 % (11.5-14.5); Red Blood Cell (RBC) Count 4.52 mill/uL (4.20-5.40); White Blood Cell (WBC) Count 22.5 thou/uL (4.8-10.8)
[2020-08-26 09:50] LABS: Anion Gap 38 mmol/L (10-20); BUN (Urea Nitrogen) 54 mg/dL (9.8-20.1); Calc. Creatinine Clearance 0 mL/min (70-130); Calcium 7.7 mg/dL (7.8-10.44); Chloride 92 mmol/L (98-107); Glucose 123 mg/dL (83-110); Potassium 5.1 mmol/L (3.5-5.1); Sodium 133 mmol/L (136-145)
[2020-08-26 09:57] LABS: Carbon Dioxide 8 mmol/L (23-31)
[2020-08-26 10:20] LABS: Band 28 % (5-11); Lymphocytes 17 % (21-51); MDiff Complete? YES; Monocytes 21 % (0-10); Neutrophil 33 % (42-75); Nucleated RBC 1 % (0); Platelet Morphology Comment Appears Decreased; Polychromasia SLIGHT = 2-3 cells (100X) (0-2/hpf); Reactive Lymphocytes 1 % (0-10)
[2020-08-26] MEDS ORDERED: Cefepime 1 GM in Sodium Chloride 0.9% 100 ML IVPB SCH (14:00)
--- NOTE | 2020-08-26 17:48 | PRG ---
DATE OF SERVICE: 08/26/2020 SUBJECTIVE: The patient was seen at the bedside. Daughter was at the bedside. The patient was about to be compassionately extubated. OBJECTIVE: GENERAL: This is an elderly female, who is intubated. VITAL SIGNS: Reviewed. HEENT: Intubated. CV: S1 and S2 heard. RESPIRATORY: Clear. GI: Abdomen is soft MUSCULOSKELETAL: 1+ edema. NEUROLOGIC: Intubated. LABORATORY DATA: Potassium 5.1, BUN is 54, creatinine is 2.5, bicarb 8. ASSESSMENT AND PLAN: 1. Acute kidney injury on chronic kidney disease, stage 4. Labs are stable, but family is extubating her compassionately. 2. Hyponatremia. 3. Hyperkalemia. 4. Severe acidosis. 5. Acute hypoxic respiratory failure. 6. Cardiorenal syndrome. Prognosis poor. Family understands and family members agree to compassionately extubate her later on. I will sign off. Job ID: [id number]
[2020-08-27] MEDS ORDERED: Famotidine/PF 20 mg/2ml Vial SLOW IVP SCH (09:00)
--- NOTE | 2020-08-28 14:05 | DIS ---
DATE OF ADMISSION: 08/25/2020 DATE OF DISCHARGE: 08/26/2020 SUMMARY: REASON FOR ADMISSION: Status post cardiac arrest with return of spontaneous circulation. CAUSE OF : Congestive heart failure secondary to coronary artery disease, hypertension, and previous valve replacement. Other contributing factors, chronic renal failure. Tobacco use was not a contributor to this patient's . SUMMARY OF HOSPITAL COURSE: This is an 85-year-old white female with a known history of hypertension, coronary artery disease, and artificial heart valve along with a previous stroke. She has had recurrent left-sided pleural effusions over the last year, likely from some sort of heart failure, was seeing a solar manufacturer's representative for this. She had increasing respiratory distress at home on the morning of admission. EMS was called. When they arrived, the family was already providing CPR. The patient was intubated and was given epi and bicarb with eventual return of spontaneous circulation after ACLS. The patient was transferred to our hospital. She was found to be in severe metabolic acidosis likely from lactic acidosis with pH of 6.75. She was treated with bicarb pushes and IV and IV drip. She did have an elevated brain natriuretic peptide and moderate left-sided pleural effusion on her CT scan without any blood clots. Dr. Khan was consulted. He discussed the patient's terminal prognosis with the family. In further discussion with the daughter, she reported that the patient actually had never wanted to be hooked up to machines. She did call the other family members and eventually they were all in agreement that the patient would not want to be on the ventilator and asked to withdraw care. This morning, we did provide terminal extubation with morphine and Ativan as needed for air hunger and agitation and the patient did quickly pass away, time of 0938 hours on 08/26/2020. The patient's body will be discharged to the home. Job ID: [id number]
--- NOTE | 2020-09-01 13:26 | PQF ---
CLINICAL DOCUMENTATION CLARIFICATION FORM: Please exercise your independent, professional judgment in responding to the clarification form. Clinical indicators are provided on the bottom of this form for your review Please check appropriate box(es): [ X ] Associated Diagnosis: Bacteremia [ ] Positive blood culture is clinically insignificant [ ] Other diagnosis [ ] Unable to determine In addition, please specify: Present on Admission (POA): [ X ] Yes [ ] No [ ] Unable to determine Physician Signature: Date/Time: For continuity of documentation, please document condition throughout progress notes and discharge summary. Thank You. To be completed by CDI/Coding staff for physician review: Present Clinical Indicators - Signs / Symptoms / Labs Results and Location in Medical Record [ x ] Blood Culture Final Alpha-Strep, not S. pneumoniae Microbiology result 08/25/20 1327 [ x ] Blood Culture Final Alpha-Strep, not S. pneumoniae Microbiology result 08/25/20 1332 [ ] [ ] Present Risk Factors Results and Location in Medical Record [ x ] Advanced age 85 Electronic medical record [ x ] Cardiac arrest Discharge summary 08/26/20 1156 [ x ] Congestive heart failure secondary to coronary artery disease, hypertension, and previous valve replacement Discharge summary 08/26/20 1156 [ ] Present Treatments Results and Location in Medical Record [ x ] Vancomycin 1gm Medication snapshot 08/25/20 1430 [ x ] Cefepime 2 gm Medication snapshot 08/25/20 1408 [ ] [ ] CDS/Plumbing Assembler Signature: Rubia Ulloa Phone #: Date: 09/01/20 MALACHI
--- NOTE | 2020-09-01 13:42 | PQF ---
CLINICAL DOCUMENTATION CLARIFICATION FORM: Please exercise your independent, professional judgment in responding to the clarification form. Clinical indicators are provided on the bottom of this form for your review Please check appropriate box(es) to clarify if the following diagnosis has been ruled in our ruled out: (CDI/Coding list diagnosis here) [ X ] Ruled in diagnosis: Shock liver [ ] Continue to treat [ ] Resolved [ ] Ruled out diagnosis: Shock liver [ ] Cannot rule out diagnosis: Shock liver [ ] Other diagnosis [ ] Unable to determine [ X ] Ruled in diagnosis: Hepatic congestion [ ] Continue to treat [ ] Resolved [ ] Ruled out diagnosis: Hepatic congestion [ ] Cannot rule out diagnosis: Hepatic congestion [ ] Other diagnosis [ ] Unable to determine In addition, please specify: Present on Admission (POA): [ X ] Yes [ ] No [ ] Unable to determine Physician Signature: Date/Time: For continuity of documentation, please document condition throughout progress notes and discharge summary. Thank You. To be completed by CDI/Coding staff for physician review: Present Clinical Indicators - Signs / Symptoms / Labs Results and Location in Medical Record [ x ] Elevated liver function tests, possibly from hepatic congestion and shock liver after the cardiac arrest, we will monitor. History & physical 08/25/20 (Dr. Chacon) [ x ] Coagulopathy History & physical 08/25/20 (Dr. Chacon) [ ] [ ] Present Risk Factors Results and Location in Medical Record [ x ] Cardiac arrest History & physical 08/25/20 (Dr. Chacon) [ x ] Acute renal failure with severe acidosis History & physical 08/25/20 (Dr. Chacon) [ ] [ ] Present Treatments Results and Location in Medical Record [ x ] Elevated liver function testswe will monitor History & physical 08/25/20 (Dr. Chacon) [ x ] We will monitor the INR History & physical 08/25/20 (Dr. Chacon) [ x ] daughter decided to make the patient DNAR. They will consider withdraw of care in the morning if patient should survive that long. History & physical 08/25/20 (Dr. Chacon) [ ] CDS/[employer] Fl[employer] Installer Signature: Rubia Ulloa Phone #: Date/Time: 09/01/20 This is a permanent part of the Medical Record [facility]
--- NOTE | 2020-09-03 14:46 | EKG ---
Test Reason : Blood Pressure : / mmHG Vent. Rate : 053 BPM Atrial Rate : 053 BPM P-R Int : 254 ms QRS Dur : 130 ms QT Int : 604 ms P-R-T Axes : 071 067 006 degrees QTc Int : 566 ms Sinus bradycardia with 1st degree A-V block Non-specific intra-ventricular conduction block Abnormal ECG Confirmed by SRINIVAS DEWARDS DO ([id number]), web content editor DANTE ADKINS ([id number]) on 09/03/2020 2:46:05 PM Referred By: Confirmed By:SRINIVAS EDWARDS DO
== END 2020-08-26 12:31 | disposition expired | DRG 291 ==
LOC: ERS 13:06 → ERHOLD 14:41
PROVIDERS: ADMIT Emergency Medicine; ATTEND Emergency Medicine
PROC: 3E033XZ Introduction of Vasopressor into Peripheral Vein, Percutaneous Approach (ICD-10-PCS; principal; 2020-08-25)
PROC: 5A1935Z Respiratory Ventilation, Less than 24 Consecutive Hours (ICD-10-PCS; 2020-08-25)
PROC: 5A12012 Performance of Cardiac Output, Single, Manual (ICD-10-PCS; 2020-08-25)
DX: I13.0 Hypertensive heart and chronic kidney disease with heart failure and stage 1 through stage 4 chronic kidney disease, or unspecified chronic kidney disease (principal); J96.01 Acute respiratory failure with hypoxia; I50.23 Acute on chronic systolic (congestive) heart failure; R40.20 Unspecified coma; K72.01 Acute and subacute hepatic failure with coma; E87.2 Acidosis; N17.9 Acute kidney failure, unspecified; N18.4 Chronic kidney disease, stage 4 (severe); E87.1 Hypo-osmolality and hyponatremia; D68.9 Coagulation defect, unspecified; R78.81 Bacteremia; I46.9 Cardiac arrest, cause unspecified; E83.51 Hypocalcemia; Z95.3 Presence of xenogenic heart valve; I25.10 Atherosclerotic heart disease of native coronary artery without angina pectoris; E87.5 Hyperkalemia; Z66 Do not resuscitate; R79.89 Other specified abnormal findings of blood chemistry; I50.84 End stage heart failure; Z90.710 Acquired absence of both cervix and uterus; Z88.2 Allergy status to sulfonamides; Z86.73 Personal history of transient ischemic attack (TIA), and cerebral infarction without residual deficits; Z79.899 Other long term (current) drug therapy; Z20.828 Contact with and (suspected) exposure to other viral communicable diseases; K76.1 Chronic passive congestion of liver
CPT/HCPCS: 0240U; 31500; 36415; 36416; 36600; 51702; 70450; 71045; 71275; 80048; 80053; 80306; 80307; 81003; 81015; 82550; 82553; 82805; 83605; 83880; 84484; 85025; 85610; 85730; 87040; 87086; 87149; 92950; 93005; 94002; 96361; 96365; 96366; 96367; 96368; 96375; 96376; 99292; J0171; J0692; J2270; J3010; J3370; J3490; J7070; Q9967; S0028